=== PATIENT | female | born 1935 | race Caucasian/White ===

== ENCOUNTER 2017-05-12 11:38 | Inpatient (IN) | payer MEDICARE, OTHER ==
[~2017-05-12] VITALS: Ht 154.9 cm; Wt 38.2 kg
--- NOTE | ~2017-05-12 | EKG ---
[place], [place] ELECTROCARDIOGRAM REPORT NAME: SHERIN BLACKBURN UNIT #: [id number] ROOM: 419 DOCTOR: JULIO CESAR STEELE,SHA BIRTHDATE: [birth year] DOS: 05/12/2017 TIME: 1158 hours. IMPRESSION: 1. Narrow complex regular tachycardia, positive sinus tachycardia. 2. Abnormal R-wave progression. 3. Left ventricular hypertrophy. 4. Prolonged QTc interval. SHA HARRELL MD CM:EKGRPT:ELECTROCARDIOGRAM REPORT [id number] [id number] SHA HARRELL MD
--- NOTE | ~2017-05-12 | PR ---
[place], [place] PROGRESS NOTE NAME: SHERIN BLACKBURN UNIT #: [id number] ROOM: 419 DOCTOR: SHA HARRELL MD BIRTHDATE: [birth year] DOS: 05/15/2017 CARDIOLOGY FOLLOWUP VISIT NOTE REASON FOR VISIT: Hypertension and elevated troponin. SUBJECTIVE: The patient is alert. Denied any chest pain or shortness of breath. REVIEW OF SYSTEMS: Limited due to her overall physical condition. PHYSICAL EXAMINATION: GENERAL: The patient is not in any acute distress. VITAL SIGNS: Blood pressure 165/85, pulse 118, respiratory rate 20. HEENT: Pupils are round and equal. No jaundice. NECK: Supple. No distended neck veins. No carotid bruits. CHEST: Emphysematous, nontender. LUNGS: Few scattered rhonchi, but fair air entry bilaterally. HEART: Regular rhythm, no S3. Grade II/ systolic murmur. EXTREMITIES: Showed left leg was slightly short and externally rotated. Trace edema. Distal pulses are fair with no cyanosis, no clubbing. RECTAL: Deferred. GENITOURINARY: Deferred. IMPRESSION: 1. Borderline elevation of troponin. The patient was chest pain free. 2. Hypertension. 3. Recent fall with hip fracture. 4. Anemia. RECOMMENDATIONS: 1. The patient is unable to swallow her pills per nursing staff, hence changed her metoprolol to IV 2.5 mg q. 6 hours for blood pressure and tachycardia. 2. Due to her multiple comorbid conditions, no further cardiac testing, except a 2D echo, which will be done tomorrow. 3. There is no family at bedside at the time of my examination. 4. Due to her multiple comorbid conditions, I would recommended conservative medical therapy and again she denied any chest pain or shortness of breath. [place], [place] PROGRESS NOTE NAME: SHERIN BLACKBURN UNIT #: [id number] ROOM: 419 DOCTOR: SHA HARRELL MD BIRTHDATE: [birth year] SHA HARRELL MD CM:PNTRANS 1641 [id number] SHA HARRELL MD 05/16/17 0003 interface
--- NOTE | ~2017-05-12 | CON ---
[place], [place] REPORT OF CONSULTATION NAME: SHERIN BLACKBURN UNIT #: [id number] ROOM: 419 DOCTOR: JULIO CESAR STEELESHA BIRTHDATE: [birth year] DOS: 05/14/2017 REASON FOR CONSULTATION: Tachycardia. CLINICAL HISTORY: The patient is an 81-year-old patient with history of hypertension, who was present in the hospital for "rhabdomyolysis." She was found on the floor by her son and the patient was brought to the Emergency Room for further evaluation. The history was obtained from the chart since the patient is unable to give a detailed history. She was admitted for rhabdomyolysis and treated with IV fluids and the cardiology was consulted for borderline elevation of troponin. Apparently, she denies any chest pain, shortness of breath or palpitations. No syncope. REVIEW OF SYSTEMS: Review of the 8 systems are limited due to the patient's overall physical condition. She was awake and alert and there is no family at bedside at the time of examination. PAST MEDICAL HISTORY: 1. Hypertension. 2. Chronic obstructive pulmonary disease. 3. Acid reflux. 4. Dyslipidemia. 5. Macular degeneration. PAST SURGICAL HISTORY: History of tubal ligation, breast surgery, and diskectomy. SOCIAL HISTORY: The patient does not smoke or drink recently, but she quit smoking in 2005. FAMILY HISTORY: Noncontributory. Father at the age of 90 from myocardial infarction. Mother history is unknown per records. HOME MEDICATIONS: Reviewed. ALLERGIES: The patient has no known drug allergies. PHYSICAL EXAMINATION: VITAL SIGNS: Blood pressure 132/68, pulse 118, respiratory rate 18. GENERAL: Alert, comfortable, in no acute distress. HEENT: Pupils are round and equal. Tongue was moist. NECK: Supple. No distinct mass, no carotid bruit. CHEST: Nontender. LUNGS: Diffuse scattered rhonchi. HEART: Regular rhythm, no S3, grade 1/6 systolic murmur. ABDOMEN: Nontender. Bowel sounds normal. EXTREMITIES: Showed trace edema, left leg was slightly externally rotated. Distal pulses are fair. SKIN: Warm. No cyanosis, no clubbing. NEUROLOGIC: The patient is alert and oriented. No focal neurological deficit. [place], [place] REPORT OF CONSULTATION NAME: SHERIN BLACKBURN UNIT #: [id number] ROOM: [facility] DOCTOR: JULIO CESAR STEELE,SHA BIRTHDATE: [birth year] MUSCULOSKELETAL: Incomplete due to patient's overall physical status. RECTAL: Deferred. GENITOURINARY: Deferred. REVIEW OF THE DIAGNOSTIC TESTS: EKG, imaging studies, and labs reviewed. EKG shows sinus tachycardia, LV hypertrophy. Hemoglobin was 8.0, potassium 2.9, magnesium 1.2. Lipid profile is reviewed. Her troponin was 0.429 and CPK was 100, CK-MB 17.1. Initial myoglobin was 4156, troponin was 0.19, BNP was 1120. IMPRESSION: 1. Borderline elevation of troponin probably due to her fall and rhabdomyolysis. 2. Sinus tachycardia. 3. Hypertension. 4. Anemia, possibly due to dilution from IV fluids. 5. Hypokalemia. 6. Hypomagnesemia. RECOMMENDATIONS: 1. The patient initially denied any chest pain or shortness of breath. EKG showed no significant ischemic changes. 2. I will start metoprolol 25 b.i.d. and monitor her heart rate and blood pressures. 3. Aspirin 81 mg once daily. 4. There is no family at bedside. 5. Supplement her electrolytes. 6. Check 2D echo for LV function and valvular function. 7. Conservative medical therapy due to her age and due to her multiple comorbid conditions. Clinically, she does not appear to be in any acute congestive heart failure hence hold on any diuretics at this time. 8. There is no family at bedside at the time of my examination. SHA HARRELL MD CM:CONSTR:REPORT OF CONSULTATION 1622 05/15/17 2001 interface
[~2017-05-12 11:38] MED LIST: ACYCLOVIR400 MG PO; ALEVE ARTHRITI220 MG PO; ASPIRIN81 M2 PO; ATENOLOL50 MG PO; ATROPINE 1% OPHT5 M1 OPH; CALTRATE 600 +1 TA1 PO; CIPRO250 MG PO; CIPRO500 MG PO; DOCUSATE100 MG PO; FLEXERIL10 MG PO; FOLIC ACID1 MG PO; HYDR25T PO; HYDRALAZINE50 MG PO; HYDROCHLOROTHIA25 MG PO; HYDROCODONE BIT1 T11 PO; IRON TABLETS325 MG PO; Ipratropium Brom3 ML NEB; LIPITOR20 MG PO; LISINOPRIL AND1 TA2 PO; LISINOPRIL HCTZ1 TA1 PO; MEGESTROL AC40 MG/ML PO; MIRALAX POWDER17 G1 PO; MULTIVITAMIN1 TA1 PO; OCUVITE1 TA1 PO; PANTOPRAZOLE40 MG PO; PERCOCET 325 MG1 TA2 PO; PERCOCET 325 MG1 TA6 PO; PRED FORTE 1 ML1 ML OP; PRED FORTE 5 ML5 ML OPH; PRILOSEC20 MG PO; PROTONIX40 MG PO; VICODIN 5/500 505 MG PO; VITAMIN B COMPL1 CAP PO; ZESTRIL,PRINIVIL5 MG PO; Zofran4 MG PO
[2017-05-12 11:48] VITALS: BP 108/80
--- NOTE | 2017-05-12 11:55 | NUR ---
PT NONCOMPLIANT WITH MONITORING DEVICES AND OXYGEN CANNULA AND REPEATEDLY REMOVES THESE.
[2017-05-12 12:11] LABS: BASO % 0.2 % (0.0-1.0); HEMATOCRIT 33.1 % (37.0-47.0); HEMOGLOBIN 11.1 g/dl (12.0-16.0); LYMPH # 0.7 10*3/uL (1.3-4.4); LYMPH % 3.6 % (27.0-41.0); MEAN CELL VOLUME 90.2 fl (81.0-99.0); MEAN CORPUSCULAR HGB 30.2 pg (27.0-31.0); MEAN CORPUSCULAR HGB CONC 33.5 g/dl (33.0-37.0); MEAN PLATELET VOLUME 8.8 fl (9.6-12.3); MONO # 1.2 10*3/uL (0.1-1.0); MONO % 6.5 % (3.0-9.0); NEUT # 16.4 10*3/uL (2.3-7.9); PLATELET COUNT AUTOMATED 354 10*3/uL (130-400); RED BLOOD COUNT 3.67 10*6/uL (4.10-5.10); RED CELL DISTRI WIDTH 13.3 % (0-14.5); WHITE BLOOD COUNT 18.4 10*3/uL (4.8-10.8)
[2017-05-12 12:20] LABS: BILIRUBIN NEGATIVE (NEGATIVE); BLOOD 1+ (NEGATIVE); CLARITY SL CLOUDY (CLEAR); COLOR STRAW (YELLOW); GLUCOSE NEGATIVE (NEGATIVE); KETONE NEGATIVE (NEGATIVE); LEUKO ESTERASE NEGATIVE (NEGATIVE); NITRITE NEGATIVE (NEGATIVE); UROBILINOGEN 0.2 E.U./dl (0.2-1.0)
[2017-05-12 12:27] LABS: ALBUMIN 3.1 gm/dl (3.1-4.5); CREATININE 1.11 mg/dL (0.55-1.02); POTASSIUM 2.9 mmol/L (3.5-5.1); TOTAL PROTEIN 7.4 gm/dL (6.4-8.2)
[2017-05-12 12:29] LABS: RBC 16-20 rbc/hpf (0-2)
[2017-05-12 12:30] LABS: BACTERIA 2+
--- NOTE | 2017-05-12 13:05 | NUR ---
DURING REASSESSMENT, PT'S SKIN FEELS WARMER. REPEAT RECTAL TEMP 99.9. PULSE UNCHANGED AT 136. PT CONTINUES TO REMOVE ALL MONITORING DEVICES WHEN PLACED SUCH POX AND INSTRUCTIONAL SUPPORT TECHNICIAN. PT USES 2L NC O2 PRN AT NIGHT WHILE SLEEPING SO I NOW ATTACH 2L NC O2. BASELINE POX WAS 97% WHEN PT WAS AWAKE ON ARRIVAL BUT DURING SLEEP IT IS NOW FOUND 89% SO OXYGEN WAS APPLIED.
--- NOTE | 2017-05-12 13:10 | NUR ---
EMS IV SITE NOT FUNCTIONAL. DISCONTINUED.
[2017-05-12 14:45] VITALS: BP 102/66
--- NOTE | 2017-05-12 15:00 | NUR ---
ADMISSION PENDING ARE BLOOD CULTURES AND A LEVAQUIN DOSE. AWAITING LAB.
--- NOTE | 2017-05-12 15:25 | NUR ---
A 81, admitted to 4E, under the services of JULIETA Pickens DO with a diagnosis of ALTERED MENTAL STATUS. Chief complaint is ALTERED MENTAL STATUS. Patient arrived via wheel chair from ER. Monitor applied. Initial assessment completed. Vital signs taken and recorded. JULIETA PICKENS DO notified of admission to the unit. Orders received. See assessment for past medical history, medications and allergies. Patient and/or family oriented to unit. [facility] visitation policy reviewed. Clothing/patient valuable form completed. PEDRO BALDWIN
--- NOTE | 2017-05-12 15:44 | NUR ---
LAB CALLED WITH CRITICAL LACTIC ACID. DR LYONS NOTIFIED.
--- NOTE | 2017-05-12 15:55 | NUR ---
UNABLE TO OBTAIN PT'S MED LIST AT THIS TIME. PT'S SON STATES HE WILL BRING IN MEDS WHEN HE COMES BACK LATER.
[2017-05-12 16:27] VITALS: BP 152/61
--- NOTE | 2017-05-12 17:23 | NUR ---
DR LYONS NOTIFIED OF CRITICAL LACTIC ACID OF 3.2
--- NOTE | 2017-05-12 17:48 | NUR ---
DR LYONS NOTIFIED OF CRITICAL TROPONIN AND CKMB LEVELS. NO NEW ORDERS AT THIS TIME.
[2017-05-12] MEDS ORDERED: PROTONIX40 MG PO (18:29)
[2017-05-12] MEDS ORDERED: NATURE'S BLEND F1 MG PO (18:30)
[2017-05-12] MEDS ORDERED: OYSTER SHELL C1 EAC2 PO (18:30)
[2017-05-12] MEDS ORDERED: LOSARTAN-HCTZ1 EACH PO (18:31)
[2017-05-12] MEDS ORDERED: CARAFATE1 G1 PO (18:31)
[2017-05-12] MEDS ORDERED: NORCO 5-325 TA1 EACH PO (18:32)
[2017-05-12] MEDS ORDERED: Ventolin 02.5 MG/3 M INH (18:37)
--- NOTE | 2017-05-12 18:37 | NUR ---
MEDS VERIFIED WITH BOTTLES BROUGHT FROM HOME AND PHARMACY CALLED AND VERIFIED
--- NOTE | 2017-05-12 18:38 | NUR ---
DR LYONS UPDATED THAT PT'S MED REC UPDATED.
--- NOTE | 2017-05-12 19:34 | NUR ---
Called and notified Dr. Zaman regarding critical Lactic Acid result. No new orders were received at this time.
--- NOTE | 2017-05-12 19:55 | NUR ---
Called and notified Dr. Zaman regarding critical Troponin result. He said he would put in an order for consult.
[2017-05-12 20:31] VITALS: BP 140/68
--- NOTE | 2017-05-12 23:25 | NUR ---
Called and notified Dr. Zaman regarding critical Troponin result. No new orders received at this time.
[2017-05-13] VITALS: BP 171/76
[2017-05-13 00:30] VITALS: BP 116/61
--- NOTE | 2017-05-13 01:04 | NUR ---
24 HR chart check completed.
--- NOTE | 2017-05-13 02:46 | NUR ---
NOTIFIED DR. MAZARIEGOS OF CRITICAL TROP ON PT. NO NEW ORDERS.
[2017-05-13 05:46] LABS: ALBUMIN 2.6 gm/dl (3.1-4.5); ALKALINE PHOSPHATASE 76 U/L (45-117); BUN 19 mg/dl (7-24); CHLORIDE 103 mmol/L (98-107); CHOLESTEROL 185 mg/dL (<200); CREATININE 0.99 mg/dL (0.55-1.02); HDL CHOLESTEROL 64 mg/dl (40-60); LDL CHOLESTEROL 95 mg/dL (9-159); PHOSPHOROUS 2.3 mg/dL (2.5-4.9); POTASSIUM 4.1 mmol/L (3.5-5.1); SGOT/AST 116 IU/L (3-35); SGPT/ALT 42 U/L (12-78); SODIUM 138 mmol/L (136-145); TOTAL PROTEIN 6.3 gm/dL (6.4-8.2); TRIGLYCERIDES 130 mg/dl (<150); VLDL CHOLESTEROL 26 mg/dL (6-40)
--- NOTE | 2017-05-13 05:46 | NUR ---
Called and notified Dr. Zaman regarding critical Troponin result. No new orders received at this time.
[2017-05-13 05:51] LABS: THYROID STIM HORMONE (HS) 0.398 uIU/ml (0.358-4.75)
[2017-05-13 05:53] LABS: BASO % 0.1 % (0.0-1.0); LYMPH # 1.1 10*3/uL (1.3-4.4); LYMPH % 7.7 % (27.0-41.0); MEAN CELL VOLUME 90.2 fl (81.0-99.0); MEAN CORPUSCULAR HGB 30.4 pg (27.0-31.0); MEAN CORPUSCULAR HGB CONC 33.7 g/dl (33.0-37.0); MEAN PLATELET VOLUME 10.6 fl (9.6-12.3); MONO # 1.1 10*3/uL (0.1-1.0); MONO % 7.3 % (3.0-9.0); NEUT # 12.4 10*3/uL (2.3-7.9); NEUT % 84.4 % (47.0-73.0); RED BLOOD COUNT 2.86 10*6/uL (4.10-5.10); RED CELL DISTRI WIDTH 13.9 % (0-14.5); WHITE BLOOD COUNT 14.7 10*3/uL (4.8-10.8)
[2017-05-13 06:07] LABS: HEMATOCRIT 25.8 % (37.0-47.0); HEMOGLOBIN 8.7 g/dl (12.0-16.0); PLATELET COUNT AUTOMATED 243 10*3/uL (130-400)
[2017-05-13 08:00] VITALS: BP 158/66
[2017-05-13 08:52] LABS: VITAMIN D, 25-HYDROXY 32.6 ng/mL (30-100)
[2017-05-13 12:00] VITALS: BP 160/61
[2017-05-13 16:00] VITALS: BP 161/66
--- NOTE | 2017-05-13 16:00 | NUR ---
PT APPEARS AGGITATED AND IS MOANING. HR 140 PER PA.
--- NOTE | 2017-05-13 16:30 | NUR ---
PT RESTING QUIETLY. REASSESSED HR IS AT 115.
[2017-05-13 20:00] VITALS: BP 98/61
--- NOTE | 2017-05-13 23:00 | NUR ---
TOOK OVER CARE OF PT AT THIS TIME, PT RESTLESS AT THIS TIME. RESPIRATIONS 20. HEART RATE ELEVATED. IV SITE PATENT, FLUIDS RUNNING PER ORDER. SUPPLEMENTAL OXYGEN IN PLACE. WILL CONTINUE TO MONITOR.
[2017-05-14] VITALS: BP 184/74
--- NOTE | 2017-05-14 | NUR ---
PT GIVEN MORPHINE VIA IV FOR S/S OF PAIN. WILL MONITOR FOR EFFECTIVENESS.
--- NOTE | 2017-05-14 01:03 | NUR ---
MORPHINE EFFECTIVE. PT RESPIRATIONS 16, RESTING IN BED WITH EYES CLOSED. AROUSABLE UPON COMMAND. BP OBTAINED, 154/64 AT THIS TIME.
[2017-05-14 01:04] VITALS: BP 154/64
--- NOTE | 2017-05-14 06:48 | NUR ---
PT NOT AWAKENED PER POLICY. RESPIRATIONS EASY AND UNLABORED. NO S/S OF DISTRESS. IV FLUIDS RUNNING PER ORDER. SUPPLEMENTAL OXYGEN IN PLACE.
--- NOTE | 2017-05-14 06:50 | NUR ---
DR. RILEY CONSULTED PER DR. ASHFORD REQUEST.
[2017-05-14 06:51] LABS: HEMATOCRIT 24.5 % (37.0-47.0); LYMPH # 1.1 10*3/uL (1.3-4.4); LYMPH % 6.5 % (27.0-41.0); MEAN CELL VOLUME 91.1 fl (81.0-99.0); MEAN CORPUSCULAR HGB 29.7 pg (27.0-31.0); MEAN CORPUSCULAR HGB CONC 32.7 g/dl (33.0-37.0); MEAN PLATELET VOLUME 9.8 fl (9.6-12.3); MONO # 1.3 10*3/uL (0.1-1.0); MONO % 7.7 % (3.0-9.0); NEUT % 85.1 % (47.0-73.0); PLATELET COUNT AUTOMATED 188 10*3/uL (130-400); RED BLOOD COUNT 2.69 10*6/uL (4.10-5.10); RED CELL DISTRI WIDTH 14.1 % (0-14.5); WHITE BLOOD COUNT 16.4 10*3/uL (4.8-10.8)
[2017-05-14 07:09] LABS: ALBUMIN 2.3 gm/dl (3.1-4.5); ALKALINE PHOSPHATASE 66 U/L (45-117); BUN 17 mg/dl (7-24); CHLORIDE 106 mmol/L (98-107); CREATININE 0.51 mg/dL (0.55-1.02); PHOSPHOROUS 2.2 mg/dL (2.5-4.9); SGOT/AST 96 IU/L (3-35); SGPT/ALT 43 U/L (12-78); SODIUM 140 mmol/L (136-145); TOTAL PROTEIN 5.9 gm/dL (6.4-8.2)
--- NOTE | 2017-05-14 07:34 | NUR ---
DR. NULL NOTIFIED OF CRITICAL TROPONIN LEVEL OF 0.461 DOWN FROM 0.98. PHYSICIAN SAYS HE WILL PASS ON TO TEAM TAKING CARE OF PT.
[2017-05-14 07:37] LABS: POTASSIUM 2.9 mmol/L (3.5-5.1)
[2017-05-14 08:00] VITALS: BP 152/58
[2017-05-14 12:00] VITALS: BP 132/68
[2017-05-14 16:00] VITALS: BP 148/64
[2017-05-14 20:00] VITALS: BP 159/66
--- NOTE | 2017-05-14 20:00 | NUR ---
ASSUMED CARE OF PATIENT. ASSESSMENT COMPLETE. RESTING IN BED. BED ALARM ON. CALL LIGHT IN REACH. WILL CONTINUE TO MONITOR.
--- NOTE | 2017-05-14 22:06 | NUR ---
PT NPO FOR SWALOW EVAL D/T CHOKING. CALLED AND SPOKE TO DR HARRELL REGARDING PO LOPRESSOR. ORDER RECEIVED
[2017-05-15] VITALS: BP 160/88
--- NOTE | 2017-05-15 01:15 | NUR ---
PT SUCTIONED FOR LARGE AMOUNT OF THICK WHITE SPUTUM
--- NOTE | 2017-05-15 02:28 | NUR ---
SLEEPING. RESP EASY AND NONLABORED ON 3L NC. NO SIGNS OF DISTRESS NOTED. CALL LIGHT IN REACH. BED ALARM ON. WILL CONTINUE TO MONITOR.
[2017-05-15 04:00] VITALS: BP 126/48
[2017-05-15 06:16] LABS: BASO % 0.1 % (0.0-1.0); EOS % 0.1 % (1.0-4.0); HEMATOCRIT 26.7 % (37.0-47.0); HEMOGLOBIN 8.7 g/dl (12.0-16.0); LYMPH # 0.7 10*3/uL (1.3-4.4); LYMPH % 4.7 % (27.0-41.0); MEAN CORPUSCULAR HGB 30.6 pg (27.0-31.0); MEAN CORPUSCULAR HGB CONC 32.6 g/dl (33.0-37.0); MEAN PLATELET VOLUME 10.5 fl (9.6-12.3); MONO # 0.9 10*3/uL (0.1-1.0); MONO % 6.1 % (3.0-9.0); NEUT # 12.9 10*3/uL (2.3-7.9); NEUT % 88.2 % (47.0-73.0); PLATELET COUNT AUTOMATED 213 10*3/uL (130-400); RED BLOOD COUNT 2.84 10*6/uL (4.10-5.10); RED CELL DISTRI WIDTH 14.1 % (0-14.5); WHITE BLOOD COUNT 14.6 10*3/uL (4.8-10.8)
[2017-05-15 06:26] LABS: ALBUMIN 2.3 gm/dl (3.1-4.5); ALKALINE PHOSPHATASE 68 U/L (45-117); BUN 26 mg/dl (7-24); CHLORIDE 108 mmol/L (98-107); CREATININE 0.65 mg/dL (0.55-1.02); POTASSIUM 3.1 mmol/L (3.5-5.1); SGOT/AST 70 IU/L (3-35); SGPT/ALT 41 U/L (12-78); SODIUM 143 mmol/L (136-145)
[2017-05-15 08:00] VITALS: BP 164/84
--- NOTE | 2017-05-15 08:28 | NUR ---
PT MEDICATED WITH MORPHINE FOR C/O LEFT HIP PAIN. CALL LIGHT IN REACH. PT CLOSE TO THE NURSES STATION. WILL MONITOR
--- NOTE | 2017-05-15 09:29 | NUR ---
DR ASHFORD CALLED AND NOTIFIED OF HIP XRAY RESULTS.
--- NOTE | 2017-05-15 10:28 | NUR ---
CALLED SON'S CELL PHONE NUMBER, NO ANSWER LEFT MESSAGE TO CALL UNIT.
--- NOTE | 2017-05-15 11:30 | NUR ---
CALLED SON, NO ANSWER.
[2017-05-15 12:00] VITALS: BP 158/75
--- NOTE | 2017-05-15 13:10 | NUR ---
CALLED CELL NUMBER LISTED FOR SON. NO ANSWER.
--- NOTE | 2017-05-15 13:20 | NUR ---
PT MEDICATED WITH MORPHINE FOR C/O PAIN TO LEFT HIP. CALL LIGHT IN REACH. CLOSE TO NURSES STATION. WILL MONITOR
--- NOTE | 2017-05-15 15:30 | NUR ---
SON CALLS UNIT. UPDATED ON PT FRACTURE TO LEFT HIP. SON ALSO SPOKE WITH DR ASHFORD.
[2017-05-15 16:00] VITALS: BP 160/90
--- NOTE | 2017-05-15 16:09 | NUR ---
PT SON IN TO VISIT WITH PT. DR PERKINS CALLED PER HIS REQUEST SO HE COULD SPEAK WITH THE SON.
[2017-05-15] MEDS ORDERED: LEVOFLOXAC500 MG/100 IV (16:49)
--- NOTE | 2017-05-15 17:37 | NUR ---
PT MEDICATED WITH MORPHINE IV FOR C/O LEFT HIP PAIN. CALL LIGHT IN REACH. WILL MONITOR
--- NOTE | 2017-05-15 17:37 | NUR ---
PT TO BE SENT TO [facility]. AWAITING AMBULANCE TO TRANSFER. PT AND FAMILY AWARE
--- NOTE | 2017-05-15 17:48 | NUR ---
REPORT CALLED TO AMANDA AT [facility] ER.
--- NOTE | 2017-05-15 18:22 | NUR ---
Discharge instructions reviewed with patient/family. Patient receptive and verbalizes understanding. Written instructions given to EMS for transport to [facility] PEDRO BASS
== END 2017-05-15 18:22 | disposition short-term general hospital (02) | DRG 871 ==
LOC: ED 11:38 → 4E 15:05 → EDHOLD 15:05 → 4E 15:06
PROVIDERS: Emergency Medicine; Internal Medicine; Student in an Organized Health Care Education/Training Program; ADMIT Emergency Medicine
DX: A41.9 Sepsis, unspecified organism (principal); J96.21 Acute and chronic respiratory failure with hypoxia; I21.A1 Myocardial infarction type 2; N17.0 Acute kidney failure with tubular necrosis; E44.0 Moderate protein-calorie malnutrition; G93.41 Metabolic encephalopathy; J18.9 Pneumonia, unspecified organism; M62.82 Rhabdomyolysis; E83.42 Hypomagnesemia; S72.092A Other fracture of head and neck of left femur, initial encounter for closed fracture; D64.9 Anemia, unspecified; I48.91 Unspecified atrial fibrillation; E87.6 Hypokalemia; J44.9 Chronic obstructive pulmonary disease, unspecified; I10 Essential (primary) hypertension; E78.5 Hyperlipidemia, unspecified; K21.9 Gastro-esophageal reflux disease without esophagitis; Z66 Do not resuscitate; R65.20 Severe sepsis without septic shock; R73.9 Hyperglycemia, unspecified; Z51.5 Encounter for palliative care; R74.0 Nonspecific elevation of levels of transaminase and lactic acid dehydrogenase [LDH]; H35.30 Unspecified macular degeneration; X58.XXXA Exposure to other specified factors, initial encounter; Y93.89 Activity, other specified; Y92.89 Other specified places as the place of occurrence of the external cause; Z82.49 Family history of ischemic heart disease and other diseases of the circulatory system; Z98.51 Tubal ligation status; Z98.41 Cataract extraction status, right eye; Z87.891 Personal history of nicotine dependence; Z98.42 Cataract extraction status, left eye; Y99.8 Other external cause status; Z68.38 Body mass index [BMI] 38.0-38.9, adult